=== PATIENT | female | born 1930 | race Hispanic/Latino ===

== ENCOUNTER → 2018-10-19 | Outpatient (CLI) | payer MEDICARE, OTHER | END | disposition home or self-care (01) | LOC: RAH 10:26 | PROVIDERS: ATTEND Internal Medicine | DX: L89.899 Pressure ulcer of other site, unspecified stage (principal); E11.29 Type 2 diabetes mellitus with other diabetic kidney complication; I73.9 Peripheral vascular disease, unspecified; Z76.89 Persons encountering health services in other specified circumstances | CPT/HCPCS: 93922 ==